=== PATIENT | male | born 1970 | race Caucasian/White ===

== ENCOUNTER 2016-08-12 16:20 | Emergency (ER) | payer BC ==
--- NOTE | 2016-08-12 16:35 | UC ---
Dizzy HPI HPI Summary: The patient comes in today for: 1. Dizziness (imbalance for "a few seconds" when getting out of a chair), headaches, sinus congestion: Onset: 4 days ago. Palliative/provocative: Nothing makes symptoms better or worse. Quality: Ache Region: Frontal headache. Severity: 7/10 though he appears 4/10 Time: Constant. Associated symptoms: Fevers: None. Rhinitis: Clear Cough: None. Sore throat: Not now. Previous treatment: He takes 15 mg a day of meloxicam which has not helped. He tends to minimize the sinus congestion. * - History Of Current Complaint Stated Complaint: DIZZY,HEADACHE Time Seen by Provider: 08/12/16 16:26 Hx Obtained From: Patient - Allergies/Home Medications Allergies/Adverse Reactions: Allergies Allergy/AdvReac Type Severity Reaction Status Date / Time Tramadol Allergy GI Upset Verified 08/12/16 16:46 Home Medications: Home Medications Losartan Potassium 100 mg PO BEDTIME 08/12/16 [History Confirmed 08/12/16] Oseltamivir CAP* [Tamiflu CAP*] 75 mg PO DAILY 08/12/16 [History Confirmed 08/12] PMH/Surg Hx/FS Hx/Imm Hx Previously Healthy: No - Allergies, Flu exposure, Endocrine History Of: Denies: Diabetes, Thyroid Disease, Hyperthyroidism, Hypothyroidism, Dyslipidemia Cardiovascular History Of: Reports: Hypertension Denies: Cardiac Disorders, Pacemaker/ICD, Myocardial Infarction, Congestive Heart Failure, Atrial Fibrillation, Deep Vein Thrombosis, Bleeding Disorders Respiratory History Of: Denies: COPD, Asthma, Bronchitis, Pneumonia, Pulmonary Embolism GI/ History Of: Reports: Gastrointestinal Bleed - He was on a medication for pain and had it stopped due to black stools., Kidney Stones Denies: Gastroesophageal Reflux, Ulcer, Gall Bladder Disease, Diverticulitis , Renal Disease, Urosepsis Neurological History Of: Denies: TIA, CVA, Dementia, Seizures, Migraine Psychological History Of: Denies: Anxiety, Depression, Bipolar Disorder, Schizophrenia, Post Traumatic Stress Disorder Cancer History Of: Denies: Lung Cancer, Colorectal Cancer, Breast Cancer, Prostate Cancer, Cervical Cancer Other History Of: Negative For: HIV, Hepatitis B, Hepatitis C, Anticoagulant Therapy - Surgical History Surgical History: Yes Surgery Procedure, Year, and Place: [place]. hydrocele. L wrist surgery - Family History Known Family History: Positive: Hypertension Negative: Cardiac Disease, Diabetes - Social History Occupation: Employed Full-time Alcohol Use: Occasionally Substance Use Type: None Smoking Status (MU): Never Smoked Tobacco - Immunization History Most Recent Influenza Vaccination: NOT THIS SEASON Review of Systems Constitutional: Negative Skin: Negative Eyes: Negative ENT: Negative Respiratory: Negative Cardiovascular: Negative Gastrointestinal: Negative Genitourinary: Negative All Other Systems Reviewed And Are Negative: Yes Physical Exam Triage Information Reviewed: Yes Appearance: Well-Appearing, No Pain Distress, Well-Nourished Eyes: Positive: Conjunctiva Clear. Negative: Discharge ENT: Positive: Hearing grossly normal, Other: - No frontal or maxillary sinus pressure tenderness.. Negative: Pharyngeal erythema, Nasal congestion, Nasal drainage, TM bulging, TM dull, TM red, Tonsillar swelling, Tonsillar exudate Dental: Negative: Gross Decay/Caries @, Dental Fracture @ Neck: Positive: Supple, Nontender, No Lymphadenopathy. Negative: Nuchal Rigidity Respiratory: Positive: Chest non-tender, Lungs clear, No respiratory distress, No accessory muscle use Cardiovascular: Positive: RRR, No Murmur Abdomen Description: Positive: Nontender, No Organomegaly, Soft. Negative: Distended, Guarding Musculoskeletal: Positive: Strength Intact, ROM Intact, No Edema Neurological: Positive: Alert, Muscle Tone Normal Psychological: Positive: Age Appropriate Behavior, Consolable Skin: Negative: rashes, breakdown Dizzy Course/Dx - Course Course Of Treatment: Patient was told of his unremarkable vitals. Treatment options were discussed. He would like to try steroid nasal sprays. - Differential Dx/Diagnosis Provider Diagnoses: Upper respiratory infection. Headache. Discharge - Discharge Plan Condition: Stable Disposition: HOME Patient Education Materials: Dizziness (ED), Upper Respiratory Infection (ED) Referrals: Kirk Rodriguez DO [Primary Care Provider] - 1 Week (Please see your primary care provider in about a week to see how well you are doing. If you get worse, please be seen sooner.) Additional Instructions: Please get any of the steroid nasal sprays and use according to directions. Some of the names of these nasal sprays are "Flonase," and "Rhinocort."
[2016-08-12 16:46] VITALS: BP 133/90
== END 2016-08-12 17:07 | disposition home or self-care (01) ==
LOC: UCCORT 16:20
DX: J06.9 Acute upper respiratory infection, unspecified (principal); R51 Headache; Z88.5 Allergy status to narcotic agent
CPT/HCPCS: 99211; G0463

== ENCOUNTER 2016-08-27 21:27 | Emergency (ER) | payer BC ==
[2016-08-27 21:40] VITALS: BP 127/76
--- NOTE | 2016-08-27 22:00 | UC ---
Neck Pain HPI - HPI Summary HPI Summary: p scott left knee pain that began after shoveling snow over the last 2 days. c/o pain on lateral posterior hamstring left thigh - History of Current Complaint Stated Complaint: LEFT KNEE PAIN Time Seen by Provider: 08/27/16 21:37 Hx Obtained From: Patient Onset/Duration Of Injury/Symptoms: Hours Mechanism Of Injury: No Known Trauma Timing: Constant Onset/Duration: Gradual Onset, Lasting Days Severity: Moderate Location: Discrete At: - left posterior thigh lateral hamstring Character: Dull, Aching, Stiff Aggravating Factors: Movement Alleviating Factors: Nothing Associated Signs & Symptoms: Positive: Negative - Risk Factors Meningitis Risk Factors: Negative - Allergies/Home Medications Allergies/Adverse Reactions: Allergies Allergy/AdvReac Type Severity Reaction Status Date / Time Tramadol Allergy GI Upset Verified 08/12/16 16:46 Home Medications: Home Medications Gabapentin CAP(*) [Neurontin 300 CAP(*)] 300 mg PO BID 08/27/16 [History Confirmed 08/27/16] Meloxicam [Mobic] 15 mg PO DAILY 08/27/16 [History Confirmed 08/27/16] PMH/Surg Hx/FS Hx/Imm Hx Previously Healthy: Yes Endocrine History Of: Denies: Diabetes, Thyroid Disease, Hyperthyroidism, Hypothyroidism, Dyslipidemia Cardiovascular History Of: Reports: Hypertension Denies: Cardiac Disorders, Pacemaker/ICD, Myocardial Infarction, Congestive Heart Failure, Atrial Fibrillation, Deep Vein Thrombosis, Bleeding Disorders Respiratory History Of: Denies: COPD, Asthma, Bronchitis, Pneumonia, Pulmonary Embolism GI/ History Of: Reports: Gastrointestinal Bleed - He was on a medication for pain and had it stopped due to black stools., Kidney Stones Denies: Gastroesophageal Reflux, Ulcer, Gall Bladder Disease, Diverticulitis , Renal Disease, Urosepsis Neurological History Of: Denies: TIA, CVA, Dementia, Seizures, Migraine Psychological History Of: Denies: Anxiety, Depression, Bipolar Disorder, Schizophrenia, Post Traumatic Stress Disorder Cancer History Of: Denies: Lung Cancer, Colorectal Cancer, Breast Cancer, Prostate Cancer, Cervical Cancer Other History Of: Negative For: HIV, Hepatitis B, Hepatitis C, Anticoagulant Therapy - Surgical History Surgical History: Yes Surgery Procedure, Year, and Place: [place]. hydrocele. L wrist surgery - Family History Known Family History: Positive: Hypertension Negative: Cardiac Disease, Diabetes - Social History Alcohol Use: Occasionally Substance Use Type: None Smoking Status (MU): Never Smoked Tobacco - Immunization History Most Recent Influenza Vaccination: NOT THIS SEASON Review Of Systems Constitutional: Positive: Negative Skin: Positive: Negative Eyes: Positive: Negative ENT: Positive: Negative Respiratory: Positive: Negative Cardiovascular: Positive: Negative Gastrointestinal: Positive: Negative Genitourinary: Positive: Negative Musculoskeletal: Positive: Decreased ROM - left knee secondary to pain, Myalgia - left knee Neurological: Positive: Negative Psychological: Positive: Negative All Other Systems Reviewed And Are Negative: Yes Physical Exam Triage Information Reviewed: Yes Appearance: Well-Appearing Vital Signs: Initial Vital Signs Temp 98.0 F 08/27/16 21:35 Pulse 66 08/27/16 21:35 Resp 16 08/27/16 21:35 BP 127/76 08/27/16 21:35 Pulse Ox 100 08/27/16 21:35 Eye Exam: Normal Neck exam: Normal Respiratory Exam: Normal Cardiovascular Exam: Normal Musculoskeletal Exam: Other Musculoskeletal: Positive: ROM Limited @ - left knee secondary to pain, Other: - posterior knee and left posterior lateral hamstring with palpation and ROM Neurological Exam: Normal Psychological Exam: Normal Skin Exam: Normal Neck Pain Course/Dx - Differential Dx/Diagnosis Differential Dx/HQI/PQRI: Strain, Other - tendinitis left knee Provider Diagnoses: left knee pain. left knee sprain. tendinitis Discharge - Discharge Plan Condition: Stable Disposition: HOME Patient Education Materials: Knee Pain (ED), Tendinitis (ED), Knee Exercises ( GEN) Referrals: Kirk Rodriguez DO [Primary Care Provider] - If Needed Additional Instructions: Please follow up with your PCP or return to clinic as needed.
== END 2016-08-27 22:07 | disposition home or self-care (01) ==
LOC: UCCORT 21:27
DX: M25.562 Pain in left knee (principal); M76.9 Unspecified enthesopathy, lower limb, excluding foot; S83.92XA Sprain of unspecified site of left knee, initial encounter; X58.XXXA Exposure to other specified factors, initial encounter; Y93.H1 Activity, digging, shoveling and raking; Y92.9 Unspecified place or not applicable; Z90.49 Acquired absence of other specified parts of digestive tract; Z88.5 Allergy status to narcotic agent
CPT/HCPCS: 99211; G0463